=== PATIENT | female | born 2000 | race Two or more races ===

== ENCOUNTER 2025-01-23 05:30 | Observation (INO) | payer MEDICAID, SELFPAY ==
[2025-01-23 04:23] VITALS: BMI 37.5
[2025-01-23 04:28] VITALS: BP 131/85; PULSE 81; RESP 18; TEMP 36.8; O2SAT 100
--- NOTE | 2025-01-23 04:39 | PD.EDRME ---
Rapid Medical Screening Exam RME Arrival date/time: 01/23/25 04:23 24-year-old female A1 approximately 25 weeks presents emergency department complaining of dysuria and vaginal itching. Chief Complaint: Urogenital-Female Vital signs: Vital Signs Temperature 98.2 F 01/23/25 04:28 Pulse Rate 81 01/23/25 04:28 Respiratory Rate 18 01/23/25 04:28 Blood Pressure 131/85 H 01/23/25 04:28 Pulse Oximetry (%) 100 01/23/25 04:28 Oxygen Delivery Method Room Air 01/23/25 04:28 Vital signs reviewed by provider: Yes
[2025-01-23 04:51] LABS: Collection Type, Urine Clean Catch
[2025-01-23 05:00] LABS: Bacteria,Urine Rare; Bilirubin,Urine Negative (Negative); Blood,Urine Negative (Negative); Clarity,Urine Turbid (Clear/Hazy); Color,Urine Lt-Yellow (Lt Yel-Yel); Culture Indicated,Urine Not Indicated; Glucose, Urine Negative (Negative); Ketones,Urine Negative (Negative); Leukocyte Esterase,Urine Positive (Negative); Nitrite,Urine Negative (Negative); PH,Urine 6.5 (5.0-7.0); Protein,Urine Negative (Neg - Trace); RBC,Urine 9 /hpf (0-3); Specific Gravity,Urine 1.018 (1.001-1.035); Squamous Epithelial Cell,Urine 9 /hpf (0-5); Urobilinogen,Urine Negative mg/dL (0.0-1.0); WBC,Urine 3 /hpf (0-5)
--- NOTE | 2025-01-23 05:07 | EDNOTE_ITS ---
ED Female Urogenital RME/HPI General Chief complaint: Urogenital-Female Stated complaint: VAGINAL ITCHING AND BURNING Source: patient Arrival date/time: 01/23/25 04:23 24-year-old female A1 approximately 25 weeks presents emergency department complaining of dysuria and vaginal itching. Patient denies any fever, chills, vaginal bleeding, abdominal pain, abdominal cramping, or any other associated symptom. Mode of arrival: ambulatory Limitations: no limitations RME / HPI RME / HPI Narrative: 01/23/25 04:23 24-year-old female A1 approximately 25 weeks presents emergency department complaining of dysuria and vaginal itching. Related Data : 4 Para: 2 A: 1 Home Medications ?Medication ?Instructions ?Recorded ?Confirmed prenat.vits,vianca,eig-qote-iewub 1 tab PO QDAY 07/22/21 07/22/21 Previous Rx's ?Medication ?Instructions ?Recorded ibuprofen 800 mg tablet 800 mg PO TID PRN pain #30 t abs 05/23/24 cephalexin 500 mg capsule 500 mg PO TID 4 days #12 cap s 01/23/25 clotrimazole 2 % vaginal cream See Rx Instructions .[place] 01/23/25 (Clotrimazole 3 Day) .COMPLEX #21 grams Allergies Allergy/AdvReac Type Severity Reaction Status Date / Time No Known Allergies Allergy Verified 07/22/21 15:38 Review of Systems Review of Systems Systems Reviewed: All systems reviewed, normal except as documented Constitutional Constitutional: Reports system reviewed and no additional complaints, except as documented, Denies body ache(s), Denies chills and Denies fever(s) Eyes Eyes: Reports system reviewed and no additional complaints, except as documented and Denies change in vision ENT Ears, Nose, Mouth, and Throat: Reports system reviewed and no additional complaints, except as documented, Denies disequilibrium, Denies dizziness, Denies sore throat and Denies vertigo Cardiovascular Cardiovascular: Reports system reviewed and no additional complaints, except as documented, Denies chest pain and Denies dyspnea Respiratory Respiratory: Reports system reviewed and no additional complaints, except as documented, Denies chest congestion, Denies cough and Denies dyspnea Gastrointestinal Gastrointestinal: Reports system reviewed and no additional complaints, except as documented, Denies abdominal pain, Denies nausea and Denies vomiting Genitourinary Genitourinary: Reports dysuria, Reports urinary urgency and Reports vaginal pruritus Musculoskeletal Musculoskeletal: Reports system reviewed and no additional complaints, except as documented, Denies abnormal gait and Denies arthralgias Integumentary/Breasts Skin/Breast: Reports system reviewed and no additional complaints, except as do cumented, Denies erythema, Denies rash and Denies wounds Neurologic Neurologic: Reports system reviewed and no additional complaints, except as documented, Denies abnormal gait, Denies disequilibrium, Denies dizziness and Denies vertigo Past Medical History Past Medical History NEUROLOGIC: Negative Neurological Disorders CARDIAC: Negative Cardiac Disorders or Congestive Heart Failure RESPIRATORY: Negative Chronic Obstructive Pulmonary Disease (COPD) GASTROINTESTINAL: Negative Gastrointestinal Disorders GENITOURINARY: Negative Genitourinary Disorders or Renal Disease REPRODUCTIVE: Negative Pelvic Inflammatory Disease MUSCULOSKELETAL: Negative Musculoskeletal Disorders ENDOCRINE: Negative Endocrine Disorders, Diabetes Mellitus Type 1 or Diabetes Mellitus Type 2 HEMATOLOGIC: Negative Blood Disorders OTHER HISTORY: Negative Autoimmune Disease, Anesthesia Reactions, Organ Transplant, MRSA, VRSA, Vancomycin-Resistant Enterococci, Clostridium Difficile or Cancer Family History FAMILY HISTORY: Negative Family Cardiac Disorders Surgical History SURGICAL: Negative Cardiac Surgery, Endocrine Surgery, Ear Surgery, Abdominal Surgery, Nephrectomy, Joint Replacement, Neurologic Surgery, Mastectomy or Organ Transplant Social History SMOKING STATUS: Never smoker SECOND HAND EXPOSURE: No SUBSTANCE USE: does not use ED Exam General Limitations: Present no limitations General appearance: Present alert and in no apparent distress Head Head exam: Present atraumatic Eye Eye exam: Present normal appearance, PERRL and EOMI ENT ENT exam: Present normal exam, normal oropharynx and mucous membranes moist Neck Neck exam: Present normal inspection, full ROM and trachea midline Chest Chest inspection: Present normal inspection and symmetric chest wall rise Respiratory Respiratory exam: Present normal lung sounds bilaterally Cardiovascular Cardiovascular exam: Present regular rate, normal rhythm and normal heart sounds Abdominal Exam Abdominal exam: Present soft and normal bowel sounds Extremities Exam Extremities exam: Present normal inspection and full ROM Back Exam Back exam: Present normal inspection and full ROM Neurological Exam Neurological exam: Present alert, oriented X3 and CN II-XII intact Psychiatric Psychiatric exam: Present normal affect and normal mood Skin Skin exam: Present warm, dry, intact and normal color Course Quality Measures none Orders Category Date Time Status Urinalysis, C/S if Indicated Stat Lab 01/23/25 04:40 Completed cefTRIAXone [Rocephin] 1,000 mg Med 01/23/25 05:06 Discontinued Lidocaine 1% 20 ml [Xylocaine 1% 20 ML] 2.1 ml IM X1 Vital Signs Vital signs: Vital Signs Temperature 98.2 F 01/23/25 04:28 Pulse Rate 81 01/23/25 04:28 Respiratory Rate 18 01/23/25 04:28 Blood Pressure 131/85 H 01/23/25 04:28 Pulse Oximetry (%) 100 01/23/25 04:28 Oxygen Delivery Method Room Air 01/23/25 04:28 100% room air with normal limits Urogenital - Female MDM Narrative MDM Narrative:: 24-year-old female A1 approximately 25 weeks presents emergency department complaining of dysuria and vaginal itching. Patient denies any fever, chills, vaginal bleeding, abdominal pain, abdominal cramping, or any other associated symptom. Urinalysis positive for leukocytes, WBCs, and RBCs. Will treat with antibiotics and will also treat with omeprazole for possible vulvovaginal candidiasis. Patient appears nontoxic and is hemodynamically stable. Patient will be sent to OB after discharge for heart tones. Patient stable for discharge. Patient data External records reviewed:: [facility] previous records Clinical information provided by:: patient Social determinants that could affect healthcare access:: none Patient has the following chronic illnesses:: None How is presenting disease/condition affected by chronic disease/condition?: no chronic disease Evaluation data The following diagnostics were reviewed and interpreted by me:: lab results Lab and/or radiology exams considered but not ordered:: Ordered Interpretation Summary: Interpreted by me Medications / Prescriptions Medications or Prescriptions considered but not ordered:: Ordered Medication administrations:: Medication Administration History Discontinued Medications Ceftriaxone Sodium 1,000 mg/ (Lidocaine HCl 2.1 ml) 0 mg IM X1 ONE Stop: 01/23/25 05:07 Given Consultations Consultation(s) initiated? (list below): No Diagnosis Urogenital Female Differential Diagnosis: urinary tract infection, bacterial vaginosis, trichomoniasis, cervicitis, vaginitis and cystitis Most likely diagnosis given after review of the tests above:: UTI Vulval vaginal candidiasis Admission Indicated Admission indicated?: not indicated Admission Request Was there a request for admission?: No Disposition Plan Disposition Plan: Discharge Discharge Attestation Discharge Attestation: The patient and all family members were given an opportunity to ask questions and understood the discharge instructions. Discharge instructions specifically effects, indications for sooner follow up or return to the emergency department, and the expected course of current diagnosis. Patient condition: Stable Discharge Plan Plan Patient Disposition: HOME (Self Care) Disposition Comment: Stable Prescriptions/Referrals Prescriptions/Med Rec: New Clotrimazole 3 Day 2 % cream See Rx Instructions .ROUTE .COMPLEX Qty: 21 0RF Rx Instructions: applic topically 1 applicator vaginally for 3 nights cephalexin 500 mg capsule 500 mg PO TID 4 Days Qty: 12 0RF No Action Vitamin Tablet 1 tab PO QDAY ibuprofen 800 mg tablet 800 mg PO TID PRN (Reason: pain) Qty: 30 0RF Referrals: Temporary Provider,ED [Primary Care Provider] - In 1 week Problem List Clinical Impression: Urinary tract infection, Vulvovaginal candidiasis Patient/Caregiver Discharge Instructions Discharge Activity: activity as tolerated Education Materials: Candidiasis Vaginal, ED CYSTITIS Female Adult Additional Instructions: Drink plenty of fluids and stay hydrated. Take antibiotic as prescribed. Apply clotrimazole cream as prescribed. Close follow-up with ARCHITECTURAL DESIGN PROFESSOR in 2 to 3 days. Return to emergency department for any worsening symptoms or as needed Print Language: Polish Stand Alone Forms: Lani Award Info., Patient Portal Info Letter PA/LYFT DRIVER Supervising Physician PA/LYFT DRIVER Supervising Physician: Dr. Ybarra
[2025-01-23] MEDS: cefTRIAXone 1,000 MG, LIDOCAINE 1% 20 ML 2.1 ML IM (05:29)
[2025-01-23 06:00] VITALS: BP 122/72; TEMP 36.8
[2025-01-23 06:04] VITALS: BP 122/72; PULSE 72
[2025-01-23 06:10] VITALS: TEMP 36.8
== END 2025-01-23 06:32 | disposition home or self-care (01) ==
PROVIDERS: Admitting Provider Student in an Organized Health Care Education/Training Program; PCP Family Medicine; Visit Provider Student in an Organized Health Care Education/Training Program
DX: O98.812 Other maternal infectious and parasitic diseases complicating pregnancy, second trimester (principal); B37.31 Acute candidiasis of vulva and vagina; O23.42 Unspecified infection of urinary tract in pregnancy, second trimester; N39.0 Urinary tract infection, site not specified; Z3A.25 25 weeks gestation of pregnancy
CPT/HCPCS: 59899; 81001; 96372; 99283; J0696; J3490

== ENCOUNTER 2025-04-19 16:46 | Observation (INO) | payer MEDICAID, SELFPAY ==
[2025-04-19 17:02] VITALS: BP 125/77; PULSE 82; RESP 20; TEMP 36.7; BMI 42.8
[2025-04-19 17:03] VITALS: BP 125/77; PULSE 82
--- NOTE | 2025-04-19 17:09 | XR_ITS ---
Examination: Biophysical profile, ultrasound Date and time of exam: April 19, 2025 1739 hours INDICATIONS: Labor evaluation Technique: Multiple transabdominal sonographic images of the pelvis abdomen obtained. Attention is directed to the breathing movement, gross body movement, amniotic fluid volume and tone. Findings: Amniotic fluid index 6.4 cm Total biophysical profile is 8 of 8. breathing movement is 2. Gross body movement is 2. tone is 2. Qualitative amniotic fluid volume is 2 Impression: Biophysical profile is 8 of 8.
== END 2025-04-19 18:30 | disposition home or self-care (01) ==
PROVIDERS: Admitting Provider Obstetrics & Gynecology; Visit Provider Obstetrics & Gynecology
DX: O26.899 Other specified pregnancy related conditions, unspecified trimester (principal); Z3A.00 Weeks of gestation of pregnancy not specified; R10.2 Pelvic and perineal pain
CPT/HCPCS: 59025; 59899; 76819; G0378

== ENCOUNTER 2025-05-02 09:23 | Outpatient (RCR) | payer MEDICAID, SELFPAY ==
--- NOTE | 2025-04-25 09:38 | XR_ITS ---
Examination: Biophysical profile, ultrasound Date and time of exam: April 25, 2025 1002 hours INDICATIONS: Diagnosis maternal obesity complicating Technique: Multiple transabdominal sonographic images of the pelvis abdomen obtained. Attention is directed to the breathing movement, gross body movement, amniotic fluid volume and tone. Findings: Amniotic fluid index 6.3 cm Total biophysical profile is 8 of 8. breathing movement is 2. Gross body movement is 2. tone is 2. Qualitative amniotic fluid volume is 2 Impression: Biophysical profile is 8 of 8.
[2025-04-25 10:15] VITALS: BP 117/62; PULSE 80; RESP 16; TEMP 36.7
--- NOTE | 2025-05-02 09:27 | XR_ITS ---
Examination: Biophysical profile, ultrasound Date and time of exam: May 02, 2025 at 0930 hours INDICATIONS: Maternal obesity complicating Technique: Multiple transabdominal sonographic images of the pelvis abdomen obtained. Attention is directed to the breathing movement, gross body movement, amniotic fluid volume and tone. Findings: Amniotic fluid index 7.8 cm Total biophysical profile is 8 of 8. breathing movement is 2. Gross body movement is 2. tone is 2. Qualitative amniotic fluid volume is 2 Impression: Biophysical profile is 8 of 8.
[2025-05-02 09:58] VITALS: BP 110/55; PULSE 97; RESP 16; TEMP 36.7
== END 2025-05-02 23:59 | disposition home or self-care (01) ==
LOC: S4S1 09:23
PROVIDERS: Referring Provider Student in an Organized Health Care Education/Training Program; Visit Provider Student in an Organized Health Care Education/Training Program
DX: O99.213 Obesity complicating pregnancy, third trimester (principal); E66.9 Obesity, unspecified; Z3A.39 39 weeks gestation of pregnancy
CPT/HCPCS: 59025; 76819

== ENCOUNTER 2025-05-05 21:25 | Observation (INO) | payer MEDICAID, SELFPAY ==
[2025-05-05 21:35] VITALS: BP 123/75; PULSE 100
[2025-05-05 21:44] VITALS: BMI 42.0
[2025-05-05 22:05] VITALS: BP 111/60; PULSE 91
[2025-05-05 22:36] VITALS: BP 126/58; PULSE 86
== END 2025-05-05 23:10 | disposition home or self-care (01) ==
PROVIDERS: Admitting Provider Specialist; Referring Provider Specialist; Visit Provider Specialist
DX: O26.893 Other specified pregnancy related conditions, third trimester (principal); Z3A.39 39 weeks gestation of pregnancy; R10.2 Pelvic and perineal pain
CPT/HCPCS: 59025; 59899

== ENCOUNTER 2025-05-07 01:04 | Inpatient (IN) | payer MEDICAID, SELFPAY ==
[2025-05-07] VITALS (22 sets, daily range): BP systolic 109–143; BP diastolic 67–82; PULSE 69–90; RESP 16–98; TEMP 36.8–37.1; O2SAT 97–98; BMI 42.1
--- NOTE | 2025-05-07 01:38 | PD.LDHP ---
Documentation for date of: 05/07/25 OB Labor/Induct. HPI History of Present Illness Chief complaint: Labor pains : 4 Para: 2 Term pregnancies: 2 pregnancies: 0 Living children: 2 History of Abortions: Spontaneous and Elective: 1 History of Vaginal deliveries: 0 History of sections: No History of : No Date of last menstrual period: 08/01/24 NEIL: 05/08/25 Gestational Age (weeks): 39 Gestational Age (days): 6 Gestational age based on last menstrual period: 39 History of present illness: 24-year-old 4 para 2-0-1-2 with intrauterine at 39 weeks and 6 days with due date of May 08 presents to labor and delivery complaining of contractions. She denies any leaking or bleeding she reports normal movement. She has care with [facility]. History of Present Adequate Care: Yes Obstetrical complications: none Medical complications: other (BMI 38) Labs Narrative: Past medical history: BMI 38 OB history: 2 full-term normal vaginal deliveries without complication and 1 spontaneous . Past surgical history: Denies Social history she denies any alcohol drug use or smoking she is a Syrian speaker Family history denies Allergies no known drug allergies Review of Systems Review of Systems Narrative Review of Systems: Denies any chest pain palpitations cough fever shortness of breath or lower extremity pain Past Medical History Surgical History SURGICAL: Negative Section Meds Home Medications and Allergies Home Medications ?Medication ?Instructions ?Recorded ?Confirmed ?Type prenat.vits,vianca,ccd-bwvv-dsgyg 1 tab PO QDAY 07/22/21 05/05/25 History Allergies Allergy/AdvReac Type Severity Reaction Status Date / Time No Known Allergies Allergy Verified 05/05/25 21:42 OB Exam Physical Exam Vital signs: Temp Pulse Resp BP Pulse Ox 98.4 F 90 18 130/82 98 05/07/25 01:12 05/07/25 01:18 05/07/25 01:12 05/07/25 01:18 05/07/25 01:19 Routine HEENT Exam Comments: Oropharynx clear Routine Respiratory Exam Comments: Clear to auscultation bilaterally Routine Cardiovascular Exam Comments: Regular rate and rhythm Routine Abdominal Exam Comments: Gravid term size consistent with estimated weight 7 and half pounds Detailed Labor and Delivery Exam Dilation (cm): 3-4 Effacement (%): 60 Cervix position: anterior station: -3 Presentation: Vertex Membranes: intact Comments: Per RN Exam Routine Extremities Exam Comments: Nontender Routine Skin Exam Comments: No gross rashes or lesions Routine Neurological Exam Comments: No focal deficit OB Results Impressions Impression: Intrauterine at 39 weeks and 6 days Early labor Anticipate spontaneous vaginal delivery Informed consent was obtained. The patient made aware the risk complications alternatives of benefits of operative vaginal delivery and delivery.
[2025-05-07] MEDS: RINGERS LACTATED 1000 ML 1,000 ML 100 ML IV (02:00)
[2025-05-07 02:11] LABS: Basophils % (Auto) 0 % (0-2.5); Eosinophils # (Auto) 0.1 Thou/mm3 (0.0-0.5); Eosinophils % (Auto) 1 % (0-10); Hematocrit 33.1 % (36.0-46.0); Hemoglobin 10.7 g/dL (12.0-16.0); Immature Granulocytes % (Auto) 0 % (0-0); Immature Granulocytes Auto 0.04 Thou/mm3 (0.00-0.00); Lymphocytes # (Auto) 2.1 Thou/mm3 (1.0-4.8); Lymphocytes % (Auto) 23 % (10-50); Mean Corpuscular HGB Conc 32.3 g/dl (31.0-37.0); Mean Corpuscular Hemoglobin 21.5 pg (25.0-35.0); Mean Corpuscular Volume 67 fL (80-100); Monocytes # (Auto) 0.6 Thou/mm3 (0.0-0.8); Monocytes % (Auto) 6 % (0-12); Neutrophils # (Auto) 6.3 Thou/mm3 (1.8-7.7); Neutrophils % (Auto) 69 % (37-80); Nucleated Red Blood Cell % 0 /100 WBC (0); Platelet Count 235 Thou/mm3 (140-440); RDW Standard Deviation 39.3 fL (36.4-46.3); Red Blood Count 4.97 Miln/mm3 (4.00-5.20); White Blood Count 9.2 Thou/mm3 (3.6-11.0)
[2025-05-07 02:20] LABS: Amphetamine/Metham Scrn,Ur OB Negative (Negative); Benzoylecgonine Screen, Ur OB Negative (Negative); Opiate Screen,Urine OB Negative (Negative); THC Screen,Urine OB Negative (Negative)
[2025-05-07] MEDS: OXYTOCIN in NS 20 units 20 UNIT/1,000 ML BAG 125 UNIT IV (02:20)
[2025-05-07 02:32] LABS: Path Review Blood Smear Sent to Pathologist
--- NOTE | 2025-05-07 02:34 | PD.LDDS ---
DS: Providers Provider Date of admission: 05/07/25 01:25 Primary care physician: Physician No Primary/Family Admitting Provider: Fernando Valles MD Attending Provider on Admission: Fernando Valles MD Attending Provider on DC: Fernando Valles MD Discharging Provider: Fernando Valles MD DS: Diagnosis Problem List Completed Was Problem List Reviewed/Reconciled?: Yes Summary/Hosp Course Brief History: 24-year-old 4 para 2-0-1-2 with intrauterine at 39 weeks and 6 days with due date of May 08 presents to labor and delivery complaining of contractions. She denies any leaking or bleeding she reports normal movement. She has care with [facility]. Peripartum Data Delivery Method: Normal Vaginal Delivery Episiotomy Description: None [place] 1: Gender: Male Disposition of : home Time Spent with Patient Time attestation: Total time spent providing and/or coordinating discharge services: Exam Vital Signs Temp Pulse Resp BP Pulse Ox 98.4 F 73 18 117/76 98 05/07/25 01:12 05/07/25 02:18 05/07/25 01:12 05/07/25 02:18 05/07/25 01:19 Discharge Plan Plan Patient Disposition: HOME (Self Care) Disposition Comment: Home Patient condition on transfer: Stable Prescriptions/Referrals Prescriptions/Med Rec: New ibuprofen 600 mg tablet 600 mg PO Q6H PRN (Reason: pain) Qty: 30 0RF Continued prenat.vits,vianca,jrs-ivxz-whlzr Tablet 1 tab PO QDAY Referrals: No Primary/Family,Physician [Primary Care Provider] - Patient/Caregiver Discharge Instructions Discharge Activity: activity as tolerated Other Discharge Activity Instructions:: Follow up office of primary OB in 6 weeks Other Discharge Diet Instructions: No intercourse tampons douching x 6 weeks. Call for heavy vaginal bleeding, fevers, signs of depression. Continue to take vitamins and iron for low hemoglobin. Education Materials: After a Vaginal , Breast Care After , Anemia During , : Caring for Yourself Print Language: Irish Activity Restrictions/Additional Instructions: Pelvic rest x 6 weeks. Stand Alone Forms: Lani Award Info., Patient Portal Info Letter Discharge Order Discharge Orders: Discharge (Routine); Ordered 05/08/25 Ordered By: Rico East Planned Discharge Date 05/08/25
--- NOTE | 2025-05-07 02:34 | PD.LDDELS ---
Data (Law) Data Hx Section: No : 4 Term: 2 : 0 Livin Abortions: Spontaneous & Theraputic: 1 Delivery Data (Law) Labor Data Initiation of labor: Spontaneous Induction/Augmentation Agent: None ROM date: 05/07/25 ROM time: 02:14 Amniotic membrane rupture type: Spontaneous Amniotic fluid description: Light Meconium Delivery Data EDC: 05/08/25 EDC calculated by:: LMP/early US confirmation Onset of labor date: 05/07/25 Onset of labor time: 01:00 Complete dilation date: 05/07/25 Complete dilation time: 02:10 [place] delivery date: 05/07/25 [place] delivery time: 02:15 Gestational age (weeks): 39 Gestational age (days): 6 Placenta delivery date: 05/07/25 Placenta delivery time: 02:22 Stage 1 total time: Labor - Stage 1 Duration 1 hours and 10 minutes Delivered by: Fernando Valles Delivery nurse: BRIDGETTE LUO [facility] nurse: Tico Doll RN Software Release Manager at delivery: No Support person(s) at delivery: father of the baby Other staff at delivery: mitra LUO Delivery Method Delivery method: Normal Vaginal Delivery Presentation: Vertex position: OA Anesthesia Type Anesthesia Type: None Placenta Placenta delivery description: Spontaneous Cord blood sent to lab: Yes cord blood collection: Cord Blood Type Episiotomy Episiotomy description: None EBL Estimated blood loss (ml): 15 Umbilical Cord cord description: 3 Vessels Additional Procedures None Complications Complications: None Data (Law) [place] Data [place]'s gender: Male weight (gms): 8 lb 0.926 oz Weight (pounds): 8 lbs and 0.9 ozs 1 minute: 9 5 minutes: 9
[2025-05-07 02:49] LABS: Syphilis Nonreactive (Nonreactive)
[2025-05-07] MEDS: MISOPROSTOL 200 mCg TABLET 800 MCG PR (04:16)
[2025-05-07] MEDS: METHYLERGONOVINE INJ 0.2 MG/ML VIAL IM (04:18)
[2025-05-07] MEDS: TRANEXAMIC ACID 1,000 MG IVPB 1,000 MG/100 ML BAG 200 MG IV (04:19)
[2025-05-07] MEDS: ceFAZolin/D5W 2 GM IV 2 GM/100 ML BAG IV ×3 (04:54→21:53)
--- NOTE | 2025-05-07 05:09 | PC.NURSE ---
0400Trickle of red moderate lochia noted, manual extraction performed, EBL: 250cc of red lochia with clots expressed. 0409:Dr. Valles called, update on pt. provided, orders received to administer cytotec 800mcg GA x1, TXA 1gm IVPB x1, methergine 0.25mg IM x1 and Ancef 2gm IVPB q8hr x24 hrs, then D/C Abx, T.O.R.B.
[2025-05-07 07:45] LABS: Basophils % (Auto) 0 % (0-2.5); Eosinophils % (Auto) 0 % (0-10); Hematocrit 33.6 % (36.0-46.0); Hemoglobin 10.7 g/dL (12.0-16.0); Immature Granulocytes % (Auto) 0 % (0-0); Immature Granulocytes Auto 0.05 Thou/mm3 (0.00-0.00); Lymphocytes # (Auto) 1.8 Thou/mm3 (1.0-4.8); Lymphocytes % (Auto) 14 % (10-50); Mean Corpuscular HGB Conc 31.8 g/dl (31.0-37.0); Mean Corpuscular Hemoglobin 21.3 pg (25.0-35.0); Mean Corpuscular Volume 67 fL (80-100); Monocytes # (Auto) 0.5 Thou/mm3 (0.0-0.8); Monocytes % (Auto) 4 % (0-12); Neutrophils % (Auto) 81 % (37-80); Nucleated Red Blood Cell % 0 /100 WBC (0); Platelet Count 205 Thou/mm3 (140-440); RDW Standard Deviation 39.3 fL (36.4-46.3); Red Blood Count 5.03 Miln/mm3 (4.00-5.20); White Blood Count 12.3 Thou/mm3 (3.6-11.0)
--- NOTE | 2025-05-07 08:04 | PD.LDPPPRG ---
Subjective Subjective Interval history: Patient resting comfortably breast-feeding in bed. Spouse is at her bedside. She wants to go home. She denies fevers chills. She is tolerating a general diet. She is taking Tylenol for pain. She denies any heavy vaginal bleeding. She states she is always anemic and Dr Valles tried to give her an iron infusion and she reacted reacted to this in the most recent past. We did discuss iron rich diet and continue to take vitamins and iron at discharge. Predelivery hemoglobin is 8.2 postdelivery hemoglobin is 7.5. Exam Vital Signs Temp Pulse Resp BP Pulse Ox 98.7 F 73 19 143/81 H 98 05/07/25 03:45 05/07/25 04:33 05/07/25 03:45 05/07/25 04:33 05/07/25 01:19 Narrative Exam Fundus firm nontender Objective Labs 05/07/25 07:00 Labs: Laboratory Results - last 24 hr 05/07/25 05/07/25 05/07/25 01:50 01:53 07:00 WBC 9.2 12.3 H RBC 4.97 5.03 Hgb 10.7 L 10.7 L Hct 33.1 L 33.6 L MCV 67 L 67 L MCH 21.5 L 21.3 L MCHC 32.3 31.8 RDW Std Deviation 39.3 39.3 Plt Count 235 205 D Neut % (Auto) 69 81 H Lymph % (Auto) 23 14 [place] % (Auto) 6 4 Eos % (Auto) 1 0 Baso % (Auto) 0 0 Neut # (Auto) 6.3 10.0 H Lymph # (Auto) 2.1 1.8 [place] # (Auto) 0.6 0.5 Eos # (Auto) 0.1 0.0 Baso # (Auto) 0.0 0.0 Immature Gran # (Auto) 0.04 H 0.05 H Absolute Nucleated RBC 0.00 0.00 Immature Gran % 0 0 Nucleated RBC % 0 0 Smear Path Review Sent to Pathologist Urine Opiates Screen Negative U Amphetamin/Meth Scrn Negative U Cocaine Metab Screen Negative U Marijuana (THC) Screen Negative Syphilis Serology Nonreactive Blood Type O Negative Antibody Screen NEGATIVE Blood Bank Wristband ID Yes Assessment & Plan Problem List (1) Term delivered: Problem details: Discharge home. Discharge instructions given. Follow-up with Dr Valles in 6 weeks. Status: Acute (2) Anemia affecting fourth : Problem details: Encourage vitamins iron and iron rich foods. Status: Acute Time Spent With Patient Time: Total time spent is greater than 50% in coordination of care (as documented) at patient's floor/unit and/or counseling patient: Time with patient: less than 15 minutes
--- NOTE | 2025-05-07 08:08 | PD.LDDS ---
DS: Providers Provider Date of admission: 05/07/25 01:25 Primary care physician: Physician No Primary/Family Admitting Provider: Fernando Valles MD Attending Provider on Admission: Fernando Valles MD Consults: 05/07/25 03:53 Referral Routine Comment: Attending Provider on DC: Wilma Nassar MD ([facility]) Discharging Provider: Wilma Nassar MD ([facility]) Anticipated date of discharge: 05/07/25 DS: Diagnosis Discharge Diagnosis (1) Anemia affecting fourth : Status: Acute Assessment & Plan: Iron and vitamins iron rich foods encouraged (2) Term delivered: Status: Acute Assessment & Plan: Discharge instructions given. Follow-up in 6 weeks. Problem List Completed Was Problem List Reviewed/Reconciled?: Yes Summary/Hosp Course Brief History: 24-year-old 4 para 2-0-1-2 with intrauterine at 39 weeks and 6 days with due date of May 08 presents to labor and delivery complaining of contractions. She denies any leaking or bleeding she reports normal movement. She has care with [facility] Peripartum Data Delivery Method: Normal Vaginal Delivery Episiotomy Description: None Time Spent with Patient Time attestation: Total time spent providing and/or coordinating discharge services: Exam Vital Signs Temp Pulse Resp BP Pulse Ox 98.7 F 73 19 143/81 H 98 05/07/25 03:45 05/07/25 04:33 05/07/25 03:45 05/07/25 04:33 05/07/25 01:19 Discharge Plan Plan Patient Disposition: HOME (Self Care) Disposition Comment: Home Patient condition on transfer: Stable Prescriptions/Referrals Prescriptions/Med Rec: New ibuprofen 600 mg tablet 600 mg PO Q6H PRN (Reason: pain) Qty: 30 0RF Continued prenat.vits,vianca,ujs-ersg-coypr Tablet 1 tab PO QDAY Referrals: No Primary/Family,Physician [Primary Care Provider] - Patient/Caregiver Discharge Instructions Discharge Activity: activity as tolerated Other Discharge Activity Instructions:: Follow up office of primary OB in 6 weeks Other Discharge Diet Instructions: No intercourse tampons douching x 6 weeks. Call for heavy vaginal bleeding, fevers, signs of depression. Continue to take vitamins and iron for low hemoglobin. Education Materials: After a Vaginal , Breast Care After , Anemia During , : Caring for Yourself Print Language: Greek Activity Restrictions/Additional Instructions: Pelvic rest x 6 weeks. Stand Alone Forms: Lani Award Info., Patient Portal Info Letter Discharge Order Discharge Orders: Discharge (Routine); Ordered 05/07/25 Ordered By: Wilma Nassar ([facility]) Planned Discharge Date 05/07/25
[2025-05-08] MEDS: ceFAZolin/D5W 2 GM IV 2 GM/100 ML BAG IV (05:44)
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
[2025-05-08 08:00] VITALS: BP 120/72; PULSE 72; RESP 18; TEMP 36.7; O2SAT 97
--- NOTE | 2025-05-08 12:54 | PD.LDPPPRG ---
Subjective Subjective Interval history: Delivery type: Patient doing well this morning. No acute complaints. Ambulating, tolerating p.o. and voiding without difficulty. HTN/Pre-Eclampsia screen: No chest pain, shortness of breath, headache, visual changes, epigastric or right upper quadrant pain. Breast-feeding, lochia diminishing. Bowel: Flatus+/ BM+ Exam Vital Signs Temp Pulse Resp BP Pulse Ox O2 Del Method 98.1 F 72 18 120/72 97 Room Air 05/08/25 08:00 05/08/25 08:00 05/08/25 08:00 05/08/25 08:00 05/08/25 08:00 05/08/25 08:00 Constitutional Constitutional: no acute distress Routine HEENT Exam Head: Present normocephalic and atraumatic Eye: Present EOMI and PERRL ENT: Present mucous membranes moist Routine Neck Exam Neck: Present supple and trachea midline Routine Respiratory Exam Respiratory: Present chest non-tender, lungs clear, normal breath sounds and no resp distress Routine Cardiovascular Exam Cardiovascular: Present RRR Routine Abdominal Exam Abdominal: Present soft and normoactive bowel sounds Routine Extremities Exam Extremities: Present full ROM Routine Skin Exam Skin: Present intact, dry and warm Routine Neurological Exam Neurological: Present alert, oriented X3 and CN II-XII intact Routine Psychiatric Exam Psychiatric: Present normal affect and normal thought process Objective Labs 05/07/25 07:00 Assessment & Plan Problem List (1) Anemia affecting fourth : Status: Acute (2) Term delivered: Status: Acute Assessment and plan: 1. Continue routine /post-op care 2. Labs reviewed, cbc appropriate 3. Remove dressing/Gonzalez 4. Encourage to ambulate, shower 5. Encourage PO intake, breast feeding Time Spent With Patient Time: Total time spent is greater than 50% in coordination of care (as documented) at patient's floor/unit and/or counseling patient:
--- NOTE | 2025-05-08 12:54 | PD.LDDS ---
DS: Providers Provider Date of admission: 05/07/25 01:25 Primary care physician: Physician No Primary/Family Admitting Provider: Fernando Valles MD Attending Provider on Admission: Rico East MD Consults: 05/07/25 03:53 Referral Routine Comment: Attending Provider on DC: Rico East MD Discharging Provider: Rico East MD DS: Diagnosis Discharge Diagnosis (1) (normal spontaneous vaginal delivery): Status: Acute Problem List Completed Was Problem List Reviewed/Reconciled?: Yes Summary/Hosp Course Peripartum Data Delivery Method: Normal Vaginal Delivery Episiotomy Description: None Time Spent with Patient Time attestation: Total time spent providing and/or coordinating discharge services: Exam Vital Signs Temp Pulse Resp BP Pulse Ox O2 Del Method 98.1 F 72 18 120/72 97 Room Air 05/08/25 08:00 05/08/25 08:00 05/08/25 08:00 05/08/25 08:00 05/08/25 08:00 05/08/25 08:00 Discharge Plan Plan Patient Disposition: HOME (Self Care) Disposition Comment: Home Patient condition on transfer: Stable Prescriptions/Referrals Prescriptions/Med Rec: New ibuprofen 600 mg tablet 600 mg PO Q6H PRN (Reason: pain) Qty: 30 0RF Continued prenat.vits,vianca,[id number] Tablet 1 tab PO QDAY Referrals: No Primary/Family,Physician [Primary Care Provider] - Patient/Caregiver Discharge Instructions Discharge Activity: activity as tolerated Other Discharge Activity Instructions:: Follow up office of primary OB in 6 weeks Other Discharge Diet Instructions: No intercourse tampons douching x 6 weeks. Call for heavy vaginal bleeding, fevers, signs of depression. Continue to take vitamins and iron for low hemoglobin. Education Materials: After a Vaginal , Breast Care After , Anemia During , : Caring for Yourself Print Language: Latvian Activity Restrictions/Additional Instructions: Pelvic rest x 6 weeks. Stand Alone Forms: Lani Award Info., Patient Portal Info Letter Discharge Order Discharge Orders: Discharge (Routine); Ordered 05/08/25 Ordered By: Rico aEst Planned Discharge Date 05/08/25
== END 2025-05-08 13:50 | disposition home or self-care (01) | DRG 560 ==
LOC: S4SX 02:55 → S4NX 06:56 → S4SX 06:56
PROVIDERS: Admitting Provider Specialist; Visit Provider Obstetrics & Gynecology
DX: O77.0 Labor and delivery complicated by meconium in amniotic fluid (principal); Z37.0 Single live birth; Z3A.39 39 weeks gestation of pregnancy; O99.02 Anemia complicating childbirth
CPT/HCPCS: 36415; 59025; 59409; 80307; 85025; 86780; 86850; 86900; 86901; J0689; J2210; J2590; J3490; J7120; S0191; A9270